=== PATIENT | female | born 1940 | race Caucasian/White ===

== ENCOUNTER 2017-02-09 19:29 | Emergency (ER) | payer OTHER, SELFPAY ==
[~2017-02-09] VITALS: Ht 170.2 cm; Wt 72.6 kg
[~2017-02-09 19:29] MED LIST: ADULT LOW DOSE81 MG PO; ALLERGY RELIEF180 MG PO; AMBIEN 10 MG TA10 MG PO; AMBIEN 5 MG TABL5 M1 PO; ANASPAZ0.125 MG; APAP500 PO; BONIVA; BUDEPRION SR150 MG PO; CALCIUM CITRAT1 EA14 PO; CARAFATE1 GM PO; CEFTRIAXON1 GM/50 ML IV; CEFTRIAXONE2 GM IV; CELEXA 20 MG TA20 MG; CELEXA20 MG PO; CEPHALEXIN 250250 M1 PO; CEPHALEXIN 500500 M3 PO; CIPRO500 MG PO; CLORAZEPATE D3.75 M1; FENOFIBRATE160 MG PO; FERROUS SULFATE PO; FISH OIL 1,4001 EACH PO; FLAGYL500 MG PO; FOLIC ACID0.4 MG; GLUCOSAMINE HC500 MG PO; HUMALOG PE100 UNIT/1; HUMALOG PE100 UNIT/M SUBQ; HYDROCODON-ACE1 EAC6; HYDROCODON-ACE1 EAC7 PO; HYDROCODONE-AP1 EAC6 PO; LANTUSSOLASTAR SUBQ; LASIX 20 MG TAB20 MG PO; LEVAQUIN 500 M500 M2 PO; LEVOTHYROXINE0.05 MG; LEVOTHYROXINE0.2 M1; LEVOXYL175 MCG PO; LINZESS290 MCG PO; LIORESAL 10 MG10 MG PO; LIPITOR 20 MG T20 M1 PO; LISINOPRIL20 MG PO; MAGOX 400400 MG PO; METFORMIN HCL500 MG PO; MULTIVITAMINS PO; NEURONTIN300 MG PO; NITROGLYCERIN0.4 MG SUBLING; NORVASC5 MG PO; OCUVITE EYE +1 EACH PO; OMEPRAZOLE40 MG; ONDANSETRON HCL4 M2 PO; PAXIL10 MG PO; PERCOCET 7.5-31 EACH PO; PLAVIX 75 MG TA75 M1 PO; POTASSIUM20 PO; PREDNISONE 10 M10 M1; PRILOSEC40 MG PO; PRINIVIL20 MG PO; PROBIOTIC1 EAC2 PO; PROTONIX40 M1 PO; RECLAST 55 MG/1002 IV; REGLAN 10 MG TA10 MG PO; TRAZODONE 150150 M1 PO; VITAMIN D2000 UNIT PO; VITAMIN E400 UNI6; XANAX 0.25 MG0.25 MG PO; ZESTORETIC 20-1 EAC3 PO; ZINC CHELATE50 MG PO; ZOFRAN ODT4 MG PO
[2017-02-09 21:17] VITALS: BP 152/76
== END 2017-02-09 21:18 | disposition home or self-care (01) ==
LOC: M.ERS 19:29
DX: S61.411A Laceration without foreign body of right hand, initial encounter (principal); I10 Essential (primary) hypertension; E11.9 Type 2 diabetes mellitus without complications; E03.9 Hypothyroidism, unspecified; F41.9 Anxiety disorder, unspecified; F32.9 Major depressive disorder, single episode, unspecified; M81.0 Age-related osteoporosis without current pathological fracture; Z90.710 Acquired absence of both cervix and uterus; Z98.890 Other specified postprocedural states; W01.0XXA Fall on same level from slipping, tripping and stumbling without subsequent striking against object, initial encounter; Y93.01 Activity, walking, marching and hiking; Y92.89 Other specified places as the place of occurrence of the external cause; Y99.8 Other external cause status

== ENCOUNTER → 2017-07-05 | Outpatient (CLI) | payer OTHER, SELFPAY ==
[~2017-07-05] MED LIST changes: +IPRAT-ALBUT 0.5-3 ML INH; +JARDIANCE10 MG PO; +LEVEMIR SUBQ; +SYNTHROID150 MCG PO; +XANAX1 MG PO
== END ==
LOC: M.CT 08:53
DX: N28.1 Cyst of kidney, acquired (principal); K44.9 Diaphragmatic hernia without obstruction or gangrene; K57.30 Diverticulosis of large intestine without perforation or abscess without bleeding; Z90.49 Acquired absence of other specified parts of digestive tract

== ENCOUNTER 2017-10-22 11:02 | Inpatient (IN) | payer OTHER, SELFPAY ==
[~2017-10-22] VITALS: Ht 170.2 cm; Wt 76.7 kg
[2017-10-22] VITALS (7 sets, daily range): BP systolic 108–155; BP diastolic 42–72
[~2017-10-22 11:02] MED LIST changes: -IPRAT-ALBUT 0.5-3 ML INH; -JARDIANCE10 MG PO; -LEVEMIR SUBQ; -SYNTHROID150 MCG PO; -XANAX1 MG PO
[2017-10-22] MEDS ORDERED: LEVEMIR SUBQ (11:10)
[2017-10-22 11:21] LABS: HEMATOCRIT 35.1 % (37.0-47.0); HEMOGLOBIN 11.7 gm/dL (12.0-15.0); MCH 29.2 pg (26.0-34.0); MCHC 33.3 g/dL (28.0-37.0); MCV 87.8 fL (80.0-100.0); MPV 7.5 fl. (7.2-11.1); NUCLEATED RBCS 0 /100WBC; PLATELET COUNT* 212 thou/uL (150-400); RDW-CV 13.7 % (10.5-14.5)
[2017-10-22 11:33] LABS: ANION GAP 8 mmol/L (7-16); BUN 41 mg/dL (7-18); CALCIUM 8.2 mg/dL (8.5-10.1); CHLORIDE 101 mmol/L (98-107); CO2 26 mmol/L (21-32); CREATININE 1.4 mg/dL (0.6-1.3); GLUCOSE 268 mg/dL (70-99); POTASSIUM 4.4 mmol/L (3.5-5.1); SODIUM 135 mmol/L (136-145)
[2017-10-22 11:37] LABS: APTT 34.2 Seconds (25.0-31.3); INR 0.9; PROTIME 9.7 Seconds (9.20-11.50)
[2017-10-22 11:40] LABS: ALBUMIN 2.9 g/dL (3.4-5.0); ALKALINE PHOSPHATASE 108 U/L (46-116); LIPASE 77 U/L (73-393); SGOT 15 U/L (15-37); SGPT 20 U/L (30-65); TOTAL BILIRUBIN 0.4 mg/dL (<0.1-1.0); TOTAL PROTEIN 7.5 g/dL (6.4-8.2); TROPONIN-I LEVEL <0.06 ng/mL (<0.06)
[2017-10-22 11:49] LABS: ABSOLUTE MONOCYTES 0.5 thou/uL (0.0-1.2); ABSOLUTE NEUTROPHILS 8.5 thou/uL (1.6-8.1)
[2017-10-22 11:50] LABS: PLATELET ESTIMATE ADEQUATE
[2017-10-22 14:07] LABS: URINE BILIRUBIN NEGATIVE (Negative); URINE BLOOD TRACE (Negative); URINE CLARITY CLEAR; URINE COLOR YELLOW; URINE GLUCOSE-RANDOM 3+ (Negative); URINE KETONES NEGATIVE (Negative); URINE LEUKOCYTES-REFLEX NEGATIVE (Negative); URINE NITRITE-REFLEX NEGATIVE (Negative); URINE PROTEIN 1+ (Negative); URINE UROBILINOGEN 0.2 E.U./dl (0.2-1.0)
--- NOTE | 2017-10-22 17:15 | EKG ---
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 10/22/17 1715 1107 1107 Soy Erickson MD, [facility] /EPI
[2017-10-23 04:00] VITALS: BP 116/43; BP 145/79
[2017-10-23 05:03] LABS: HEMATOCRIT 29.2 % (37.0-47.0); HEMOGLOBIN 9.8 gm/dL (12.0-15.0); MCH 29.6 pg (26.0-34.0); MCHC 33.6 g/dL (28.0-37.0); MCV 88.2 fL (80.0-100.0); RBC 3.31 mil/uL (4.20-5.00); RDW-CV 13.9 % (10.5-14.5); WBC 6.5 thou/uL (4.0-11.0)
[2017-10-23 05:55] LABS: ALBUMIN 2.3 g/dL (3.4-5.0); CALCIUM 7.7 mg/dL (8.5-10.1); CREATININE 1.5 mg/dL (0.6-1.3); MAGNESIUM 2.1 mg/dL (1.8-2.4); POTASSIUM 4.1 mmol/L (3.5-5.1); TOTAL BILIRUBIN 0.4 mg/dL (<0.1-1.0); TOTAL PROTEIN 5.5 g/dL (6.4-8.2)
[2017-10-23 08:00] VITALS: BP 94/53
[2017-10-23 11:36] VITALS: BP 136/55
[2017-10-23 15:37] VITALS: BP 148/64
[2017-10-23 19:45] VITALS: BP 128/54
[2017-10-24] VITALS (14 sets, daily range): BP systolic 109–179; BP diastolic 37–72
[2017-10-25] VITALS: BP 104/56
[2017-10-25 04:00] VITALS: BP 132/47
[2017-10-25 08:00] VITALS: BP 114/56
[2017-10-25 08:27] LABS: BE -4.2 mmol/L (-2 to +3); HCO3 19.9 mmol/L (22.0-26.0); PO2 65.1 mmHg (75.0-100.0); pH 7.399 (7.340-7.450)
--- NOTE | 2017-10-25 09:21 | CON ---
[address] [address] CONSULTATION Name: GRAHAM TORO Room: [address] IN .R.#: [id number] Admission: 10/22/17 Attend Phys: Piedad Rod MD Discharge: Date of : 38 Report #: [id number] THIS REPORT FOR: //name// CC: Piedad Rod Quintin Greer DATE OF SERVICE: 10/24/2017 REFERRING PHYSICIAN: Piedad Rod MD CHIEF COMPLAINT: Hypoxemia. HISTORY OF PRESENT ILLNESS: The patient is a 76-year-old female who presented to her primary doctor's office for routine followup. She goes to the doctor for her diabetes. While taking vital signs, the patient's O2 saturation was extremely low. The patient was advised to come to the Emergency Room. According to the patient, she had been short of breath. This has been going on for a couple of months. She had no other symptomatology. She is not aware of ever having problems with her oxygenation in the past. She denies cough, phlegm production, fever or chills. Initially, she did have some chest pain. She did not offer this during the interview. This was brought up on prior records. She is denying hemoptysis, chest pain at this time, cough, phlegm production, fever, chills, nausea or vomiting. PAST MEDICAL HISTORY: Significant for a benign lump lesion on the left side years ago, Benjamin bypass surgery, hypertension, diabetes, depression, hypothyroidism, anxiety, osteoporosis, cervical stenosis. SOCIAL HISTORY: She is . She is a smoker 1 pack per day for 50 years. FAMILY HISTORY: Positive for daughter having breast carcinoma and another relative with colon carcinoma. ALLERGIES: None known. MEDICATIONS: Levothyroxine, insulin, guaifenesin, Levaquin, vitamin D supplement, Lipitor, DuoNeb aerosol treatments. PHYSICAL EXAMINATION: VITAL SIGNS: Blood pressure 112/46, respiratory rate 16, pulse rate 69, temperature 97.7 degrees. Her weight is 178 pounds. GENERAL APPEARANCE: Awake, alert, oriented. HEAD: Atraumatic. EYES: Pupils are round, equal, [place] [address] CONSULTATION Name: GRAHAM TORO Room: [address]#: [id number] Admission: 10/22/17 Attend Phys: Piedad Rod MD Discharge: Date of : 38 Report #: [id number] ORAL CAVITY: She is edentulous. Moist mucous membranes. NECK: No adenopathy. NOSE: Nasal passages are patent. CHEST: Diminished breath sounds. No wheezes, rales or rhonchi. CARDIOVASCULAR: Regular rhythm. No murmurs or rubs. ABDOMEN: Obese, but soft without organomegaly or tenderness. EXTREMITIES: Negative for edema. SKIN: Warm and dry, no rash. NEUROLOGIC: Moves all 4 extremities. Strength equal bilaterally. LYMPHATICS: Negative. Pulses are equal. MEDICAL IMAGING STUDIES: CT of the chest reveals a dense consolidated process involving the left upper lobe which is pleural based, no evidence of adenopathy or effusions. LABORATORY DATA: Sodium 140, potassium 4.1, chloride 106, CO2 of 24, BUN 37, creatinine 1.5, EGFR 34. Hemoglobin and hematocrit of 9.8 and 29, white count 6500. ASSESSMENT: 1. Chronic obstructive airways disease. 2. Lung mass involving the left upper lobe, pleural based. 3. History of diabetes. RECOMMENDATION: An order will be submitted for Interventional Radiology to assess and see if the patient would benefit from undergoing a CT-guided lung biopsy. In the interim, aspiration precautions and aerosol treatments. <ELECTRONICALLY SIGNED> By: Vikram Bragg MD 10/25/17 0921 1113 1407Alsuad Bragg MD /nt
[2017-10-25 12:00] VITALS: BP 109/52
[2017-10-25 15:05] VITALS: BP 158/81
[2017-10-25] MEDS ORDERED: LEVAQUIN 500 M500 M2 PO (16:22)
[2017-10-25] MEDS ORDERED: IPRAT-ALBUT 0.5-3 ML INH (16:32)
[2017-10-25 16:34] VITALS: BP 109/52
--- NOTE | 2017-11-01 16:07 | PATH ---
[address] [address] PATHOLOGY RPT PROCEDURE Name: JACQUELINE BROTHERS Room: [address] IN ..#: [id number] Admission: 10/22/17 Date of : 38 Discharge: 10/25/17 Report #: [id number] Path Case #: [id number] [facility] Accession Number: [id number] . 01 Material submitted: . BIOPSY OF LT UPPER LOBE LUNG MASS . 01 Clinical history: . Lung mass 4.0 x 4.7 cm . 02 Diagnosis: Biopsy of left upper lobe lung mass: - Organizing thrombi in association with reactive fibrosis and acute inflammation, negative for malignancy and granulomas. See comment. (JENNIFER:annalee; 10/28/2017) QMS/10/28/2017 . 02 Comment: Reviewed with Dr. Jessica Mathews, who agrees with the diagnosis. (JENNIFER:annalee; 10/28/2017) . 02 Electronically signed: . Matti Bernard MD, Pathologist NPI- [id number] . 01 Gross description: . The specimen is received in formalin, labeled "Jacqueline Brothers, biopsy of left upper lobe lung mass". Received are five needle cores of friable pale shah soft tissue ranging in length from 0.4 to 0.6 cm, with each measuring 0.1 cm in diameter. The specimen is submitted entirely in cassettes A1 through A3. (CAA; 10/25/2017) QAC/QAC . 02 Pathologist provided ICD-10: J90, J84.10, J18.9 . 02 CPT . 137473 Specimen Comment: A courtesy copy of this report has been sent to Specimen Comment: [phone], , . Specimen Comment: Report sent to ,DR SANDOVAL / DR LOMELI Performed at: [address] [id number] MD Ty Hawkins MD Phone: [phone] Performed at: [address] [place] [address] PATHOLOGY RPT PROCEDURE Name: JACQUELINE BROTHERS Room: [address] IN M.R.#: [id number] Admission: 10/22/17 Date of : 38 Discharge: 10/25/17 Report #: [id number] Path Case #: [id number] [address], [place] [id number] MD Matit Bernard MD Phone: [phone]
[2018-01-06] MEDS ORDERED: XANAX1 MG PO (14:14)
[2018-01-06] MEDS ORDERED: SYNTHROID150 MCG PO (14:15)
[2018-01-06] MEDS ORDERED: JARDIANCE10 MG PO (14:17)
== END 2017-10-25 17:10 | disposition home or self-care (01) | DRG 193 ==
LOC: M.ERS 11:02 → M.2W 12:29 → M.TBA-ER 12:29 → M.2W 13:53
PROVIDERS: Family Medicine; Internal Medicine Pulmonary Disease; ADMIT Internal Medicine
PROC: 0BBG3ZX Excision of Left Upper Lung Lobe, Percutaneous Approach, Diagnostic (ICD-10-PCS; principal; 2017-10-24)
DX: J18.1 Lobar pneumonia, unspecified organism (principal); I26.99 Other pulmonary embolism without acute cor pulmonale; J44.0 Chronic obstructive pulmonary disease with (acute) lower respiratory infection; E44.0 Moderate protein-calorie malnutrition; I12.9 Hypertensive chronic kidney disease with stage 1 through stage 4 chronic kidney disease, or unspecified chronic kidney disease; E11.22 Type 2 diabetes mellitus with diabetic chronic kidney disease; N18.3 Chronic kidney disease, stage 3 (moderate); E03.9 Hypothyroidism, unspecified; H54.40 Blindness, one eye, unspecified eye; F32.9 Major depressive disorder, single episode, unspecified; M81.0 Age-related osteoporosis without current pathological fracture; F41.9 Anxiety disorder, unspecified; M48.02 Spinal stenosis, cervical region; M25.552 Pain in left hip; M25.551 Pain in right hip; Z79.2 Long term (current) use of antibiotics; Z79.82 Long term (current) use of aspirin; Z79.899 Other long term (current) drug therapy; Z79.4 Long term (current) use of insulin; Z98.42 Cataract extraction status, left eye; Z87.891 Personal history of nicotine dependence; Z98.84 Bariatric surgery status; Z98.41 Cataract extraction status, right eye; Z90.49 Acquired absence of other specified parts of digestive tract; Z90.710 Acquired absence of both cervix and uterus; Z87.311 Personal history of (healed) other pathological fracture; Z82.49 Family history of ischemic heart disease and other diseases of the circulatory system; Z80.3 Family history of malignant neoplasm of breast; Z80.0 Family history of malignant neoplasm of digestive organs; Z68.26 Body mass index [BMI] 26.0-26.9, adult

== ENCOUNTER → 2018-06-16 | Outpatient (CLI) | payer OTHER, SELFPAY ==
[~2018-06-16] MED LIST changes: +IPRAT-ALBUT 0.5-3 ML INH; +JARDIANCE10 MG PO; +LEVEMIR SUBQ; +SYNTHROID150 MCG PO; +XANAX1 MG PO
--- NOTE | 2018-06-16 15:25 | 2DMMODE ---
[place] [address] 2 D/M-MODE ECHOCARDIOGRAM Name: MUNAGRAHAM YUMIKO Room: [facility]#: [id number] Admission: 06/16/18 Attend Phys: Elliot Sen Discharge: Date of : 38 Date of Service: 06/16/18 1525 Report #: [id number] THIS REPORT FOR: //name// APPROVED REPORT Study performed: 06/16/2018 14:08:11 EXAM: Comprehensive 2D, Doppler, and color-flow Echocardiogram Patient Location: Out-Patient BSA: 1.98 HR: 82 bpm BP: 142/68 mmHg Other Information Study Quality: Fair Indications Abnormal ECG 2D Dimensions IVSd: 11.72 (7-11mm) LVOT Diam: 19.97 (18-24mm) LVDd: 40.19 mm PWd: 10.24 (7-11mm) Ascending Ao: 29.93 (22-36mm) LVDs: 22.39 (25-40mm) Aortic Root: 29.89 mm Volumes Left Atrial Volume (Systole) LA ESV Index: 19.30 mL/m2 Aortic Valve AoV Peak Jose.: 1.44 m/s AO Peak Gr.: 8.25 mmHg LVOT Max P.17 mmHg AO Mean Gr.: 4.79 mmHg LVOT Mean P.93 mmHg LVOT Max V: 1.24 m/s AO V2 VTI: 26.95 cm LVOT Mean V: 0.78 m/s MUSHTAQ (VTI): 2.65 cm2 LVOT V1 VTI: 22.80 cm Mitral Valve E/A Ratio: 0.56 MV Decel. Time: 408.17 ms MV E Max Jose.: 0.42 m/s MV PHT: 118.37 ms MVA (PHT): 1.86 cm2 [place] [address] 2 D/M-MODE ECHOCARDIOGRAM Name: GRAHAM TORO Room: [facility]#: [id number] Admission: 06/16/18 Attend Phys: Elliot Sen Discharge: Date of : 38 Date of Service: 06/16/18 1525 Report #: [id number] TDI E/Lateral E': 7.00 E/Medial E': 6.00 Medial E' Jose.: 0.07 m/s Lateral E' Jose.: 0.06 m/s Pulmonary Valve PV Peak Jose.: 1.17 m/s PV Peak Gr.: 5.43 mmHg Left Ventricle The left ventricle is normal size. There is normal LV segmental wall motion. There is normal left ventricular wall thickness. Left ventricular systolic function is normal. The left ventricular ejection fraction is within the normal range. LVEF is 60-65%. Grade I - abnormal relaxation pattern. Right Ventricle The right ventricle is normal size. The right ventricular systolic function is normal. Atria The left atrium size is normal. The right atrium size is normal. Aortic Valve The aortic valve is not well visualized. No aortic regurgitation is present. There is no aortic valvular stenosis. Mitral Valve The mitral valve is normal in structure. There is no mitral valve regurgitation noted. No evidence of mitral valve stenosis. Tricuspid Valve The tricuspid valve is normal in structure. There is no tricuspid valve regurgitation noted. Pulmonic Valve Pulmonic valve is not well visualized. There is no pulmonic valvular regurgitation. Great Vessels The aortic root is normal in size. IVC is normal in size and collapses >50% with inspiration. Pericardium There is no pericard[place] [address] 2 D/M-MODE ECHOCARDIOGRAM Name: GRAHAM TORO Room: [facility]#: [id number] Admission: 06/16/18 Attend Phys: Elliot Sen Discharge: Date of : 38 Date of Service: 06/16/18 1525 Report #: [id number] <Conclusion> Left ventricular systolic function is normal. The left ventricular ejection fraction is within the normal range. <ELECTRONICALLY SIGNED> By: Soy Erickson MD, FAC 06/16/18 1525 1525 1525 Soy Erickson MD, [facility] /INF
== END ==
LOC: M.CRD 13:34
DX: R94.31 Abnormal electrocardiogram [ECG] [EKG] (principal); I13.0 Hypertensive heart and chronic kidney disease with heart failure and stage 1 through stage 4 chronic kidney disease, or unspecified chronic kidney disease; E11.22 Type 2 diabetes mellitus with diabetic chronic kidney disease; N18.3 Chronic kidney disease, stage 3 (moderate); I50.9 Heart failure, unspecified

== ENCOUNTER → 2018-06-17 | Outpatient (CLI) | payer OTHER, SELFPAY | LOC: M.RAD 14:53 → M.NUC 16:00 | DX: J98.4 Other disorders of lung (principal); R79.1 Abnormal coagulation profile; R06.00 Dyspnea, unspecified ==

== ENCOUNTER 2018-07-20 12:52 | Inpatient (IN) | payer OTHER, SELFPAY ==
[~2018-07-20] VITALS: Ht 170.2 cm; Wt 88.9 kg
--- NOTE | ~2018-07-20 | PROC ---
[address] [address] PROCEDURE REPORT Name: GRAHAM TORO Room: [address] IN ..#: [id number] Admission: 07/20/18 Attend Phys: Nancy Zhou Discharge: 07/23/18 Date of : 38 Report #: [id number] THIS REPORT FOR: //name// For GI report, please see the Provation report in Perceptive 7 content. By: 0708Medical Records Staff LAMAR /ANDRIY
--- NOTE | ~2018-07-20 | CON ---
[address] [address] CONSULTATION Name: GRAHAM TORO Room: [address] IN .R.#: [id number] Admission: 07/20/18 Attend Phys: Nancy Zhou Discharge: Date of : 38 Report #: [id number] THIS REPORT FOR: //name// CC: Quintin West HISTORY OF PRESENT ILLNESS: A 77-year-old female known to our service from her previous hospitalizations, who is presenting for evaluation of nausea and vomiting. The patient has a prior history of type 2 diabetes, gastroparesis, Baptiste's esophagus and recurrent episodes of nausea and vomiting. The patient himself presents with one such episode of nausea, vomiting. Reports throwing up 4-5 times. The emesis contained mostly food. Denies any blood or coffee-ground material. She denies any hematemesis, hematochezia or melena. The patient reports burning sensation in the back of her chest on a daily basis. Denies any difficulty swallowing. The patient was previously diagnosed with gastroparesis, placed on Reglan, but she failed to follow up in the GI clinic and fail to take her medication as directed. PAST MEDICAL HISTORY: Type 2 diabetes, hypertension, hypothyroidism, depression, anxiety, osteoporosis, gastroparesis, and Baptiste's esophagus. PAST SURGICAL HISTORY: The patient had a Billroth II 25 years back, hernia repair, cataract surgery, cholecystectomy, left hip fracture, hysterectomy, fractured left wrist and carpal tunnel surgery. FAMILY HISTORY: No family history of colorectal cancer or quiñonez related neoplasia. SOCIAL HISTORY: The patient denies smoking, alcohol or recreational drug use. REVIEW OF SYSTEMS: A comprehensive 10-point review of systems is negative except for what was mentioned in the HPI. PHYSICAL EXAMINATION: VITAL SIGNS: Temperature 36.7, pulse rate 84, respirations 16, blood pressure 139/64. GENERAL: The patient is alert, awake, oriented x 3. HEENT: Pupils are equal, round, reactive to light and accommodation. Mucous membranes are moist. There is no congestion. LUNGS: Clear to auscultation bilaterally. CARDIOVASCULAR: Rate and rhythm regular, S1, S2 present. ABDOMEN: Soft, mild tenderness to palpation in the epigastric right upper quadrant and left upper quadrant region. No guarding or rigidity. EXTREMITIES: [place] [address] CONSULTATION Name: GRAHAM TORO Room: [address]#: [id number] Admission: 07/20/18 Attend Phys: Nancy Zhou Discharge: Date of : 38 Report #: [id number] LABORATORY DATA: Hemoglobin 9.3, hematocrit 29.1, platelet count 150, WBC count 5.3. Sodium 143, potassium 3.6, chloride 111, bicarbonate 23, BUN 29, creatinine 1.3, total bilirubin 0.7, AST 13, ALT 17, alkaline phosphatase 61. ASSESSMENT AND PLAN: Pleasant 77-year-old female with history as outlined above including diabetes and gastroparesis, presenting with nausea, vomiting. We will proceed with the endoscopic evaluation to rule out any peptic ulcer disease. The patient does have a known history of Baptiste's esophagus. She will need to be on Reglan as an outpatient on a daily basis and the patient also needs to be on a PPI on a regular basis. Further recommendations will be made after the results of the EGD. Thank you for this consultation. By: [id number] Flower MD /suyapa
[2018-07-20 13:08] VITALS: BP 123/69
[2018-07-20 13:51] LABS: ABSOLUTE EOSINOPHILS 0.1 thou/uL (0.0-0.7); ABSOLUTE LYMPHOCYTES 1.2 thou/uL (0.8-5.3); ABSOLUTE MONOCYTES 0.6 thou/uL (0.0-1.2); BASOPHILS 0.3 %; EOSINOPHILS 0.8 %; HEMATOCRIT 34.5 % (37.0-47.0); HEMOGLOBIN 11.1 gm/dL (12.0-15.0); LYMPHOCYTES 12.3 %; MCH 24.8 pg (26.0-34.0); MCHC 32.1 g/dL (28.0-37.0); MCV 77.4 fL (80.0-100.0); MONOCYTES 5.6 %; MPV 7.6 fl. (7.2-11.1); NUCLEATED RBCS 0 /100WBC; PLATELET COUNT* 167 thou/uL (150-400); RBC 4.46 mil/uL (4.20-5.00); RDW-CV 17.2 % (10.5-14.5); WBC 9.9 thou/uL (4.0-11.0)
[2018-07-20 14:00] LABS: ANION GAP 9 mmol/L (7-16); BUN 30 mg/dL (7-18); CALCIUM 8.8 mg/dL (8.5-10.1); CHLORIDE 103 mmol/L (98-107); CO2 25 mmol/L (21-32); CREATININE 1.6 mg/dL (0.6-1.3); GLUCOSE 261 mg/dL (70-99); POTASSIUM 4.6 mmol/L (3.5-5.1); SODIUM 137 mmol/L (136-145)
[2018-07-20 14:09] LABS: ALKALINE PHOSPHATASE 61 U/L (46-116); LIPASE 31 U/L (73-393); SGOT 13 U/L (15-37); SGPT 17 U/L (30-65); TOTAL BILIRUBIN 0.7 mg/dL (<0.1-1.0); TOTAL PROTEIN 6.9 g/dL (6.4-8.2); TROPONIN-I LEVEL <0.06 ng/mL (<0.06)
[2018-07-20 16:40] VITALS: BP 150/55
[2018-07-20 17:21] VITALS: BP 112/67
[2018-07-20] MEDS ORDERED: METFORMIN HCL500 MG PO (17:43)
--- NOTE | 2018-07-20 17:52 | NUR ---
ASSESSMENT COMPLETE. PT ALERT AND ORIENTED X4. PT FROM HOME WITH SPOUSE. PT DENIES PAIN AND N/V AT THIS TIME. PT IS ACCUCHECK. NSR ON TELE MONITOR. VSS. PT IS FALL RISK, BED ALARM ON. PT UP WITH ONE ASSIST. PT HAS IV FLUIDS INFUSING. SEE ASSESSMENT AND VITALS FOR OTHER DETAILS. CALL LIGHT WITHIN REACH, WILL CONTINUE PLAN OF CARE
[2018-07-20 19:57] LABS: CALCIUM 7.7 mg/dL (8.5-10.1); CREATININE 1.3 mg/dL (0.6-1.3); MAGNESIUM 1.7 mg/dL (1.8-2.4)
[2018-07-20 19:59] LABS: POTASSIUM 3.6 mmol/L (3.5-5.1)
[2018-07-20 20:00] VITALS: BP 146/60
[2018-07-21] VITALS: BP 162/73
[2018-07-21 04:00] VITALS: BP 158/76
--- NOTE | 2018-07-21 05:42 | NUR ---
PATIENT PROGRESSING TOWARDS GOALS: PATIENT ABLE TO TOLERATE CHICKEN BROTH AND SALTINE CRACKERS WITH NO NAUSEA/VOMITING. PATIENT DENIES PAIN AND DISCOMFORT. VSS ON 3L O2 NC. O2 SATURATION MAINTAINED >92%. CALL LIGHT WITHIN REACH
[2018-07-21 07:48] VITALS: BP 144/73
[2018-07-21 11:39] VITALS: BP 139/64
--- NOTE | 2018-07-21 11:58 | NUR ---
Pt is A&O. Resides at home with her . Independent. No DME. Hx of [facility]. Pt states that she has been to a skilled facility, but does not remember which one. Goal is home at nd, no needs anticipated.
[2018-07-21 15:33] VITALS: BP 143/57
--- NOTE | 2018-07-21 15:36 | EKG ---
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: [place] : 1940 Requested By: Jacobo Saenz Order Number: [id number] MD: Percy Hood Measurements Intervals [place] Rate: 97 P: 46 [place]: 169 QRS: -28 QRSD: 83 T: 54 QT: 352 QTc: 447 Interpretive Statements Sinus rhythm Probable left atrial enlargement Borderline left axis deviation Abnormal R-wave progression Compared to ECG 10/22/2017 11:07:01 Sinus arrhythmia no longer present Electronically Signed On 07-21-2018 15:36:11 CDT by Percy Hood [email or web address] <ELECTRONICALLY SIGNED> By: Percy Hood MD, FACC 07/21/18 1536 1310 1310 Percy Hood MD, [facility] /EPI
--- NOTE | 2018-07-21 16:40 | NUR ---
ASSESSMENT COMPLETE. PT ALERT AND ORIENTED X4, HARD OF HEARING. PT DENIES PAIN. PT IS SOA WITH MIN EXERTION. UP WITH STANDBY ASSIST. PT HAS IV FLUIDS INFUSING. ACCUCHECK ACHS, METFORMIN STARTED AT 1700. PT TAKES MEDICATIONS WITHOUT COMPLICATIONS. NSR ON TELE MONITOR, VSS. PT TOLERATING MEALS AND DENIES N/V. SEE ASSESSMENT AND VITALS FOR OTHER DETAILS. CALL LIGHT WITHIN REACH, WILL CONTINUE PLAN OF CARE
[2018-07-21 20:00] VITALS: BP 160/53
[2018-07-21 20:48] LABS: HEMATOCRIT 29.1 % (37.0-47.0); HEMOGLOBIN 9.3 gm/dL (12.0-15.0); MCH 24.8 pg (26.0-34.0); MCHC 31.9 g/dL (28.0-37.0); MCV 77.8 fL (80.0-100.0); MPV 7.2 fl. (7.2-11.1); RBC 3.73 mil/uL (4.20-5.00); RDW-CV 17.5 % (10.5-14.5); WBC 5.3 thou/uL (4.0-11.0)
[2018-07-22] VITALS (7 sets, daily range): BP systolic 127–165; BP diastolic 48–68
--- NOTE | 2018-07-22 05:35 | NUR ---
PATIENT PARTIALLY PROGRESSING TOWARDS GOALS: PATIENT CONTINUES TO GET SOA WITH MINIMAL EXERTION. INCREASED WHEEZES TO LUNG VILLEGAS NOTED. ORDERS RECEIVED FOR PRN BREATHING TX. ADMINISTERED BY RESPIRATORY THERAPY WITH IMPROVEMENT AND RELIEF OF SHORTNESS OF AIR. PATIENT NPO FOR EGD TODAY. PATIENT AWARE AND VERBALIZES UNDERSTANDING, ALTHOUGH OCCASIONALLY FORGETS AND ASKING FOR WATER. CALL LIGHT WITHIN REACH
--- NOTE | 2018-07-22 07:05 | NUR ---
CHANGE OF SHIFT BEDSIDE REPORT GIVEN PATIENT SEEN AT BEDSIDE, IN BED ASLEEP ASSUMED PATIENT CARE
[2018-07-23 05:17] VITALS: BP 151/62
--- NOTE | 2018-07-23 05:25 | NUR ---
PATIENT PROGRESSING TOWARDS GOALS: PATIENT DENIES PAIN, DISCOMFORT, AND NAUSEA THIS SHIFT. TOLERATING REGULAR DIET POST EGD. PATIENT REMAINS ON 2L O2 NC WITH SATURATION >92%. PATIENT EAGER TO BE DISCHARGED HOME TODAY. CALL LIGHT WITHIN REACH
[2018-07-23 06:23] VITALS: BP 151/62
--- NOTE | 2018-07-23 07:25 | NUR ---
CHANGE OF SHIFT, BEDSIDE REPORT GIVEN PATIENT SEEN AT BEDSIDE, IN BED ASLEEP ASSUMED PATIENT CARE
[2018-07-23 08:00] VITALS: BP 132/54
[2018-07-23 12:00] VITALS: BP 137/56
--- NOTE | 2018-07-23 15:04 | NUR ---
Pt discharging to home today, no home o2 needed.
[2018-07-23 15:11] VITALS: BP 137/56
[2018-07-23] MEDS ORDERED: REGLAN 10 MG TA10 MG PO (15:29)
[2018-07-23] MEDS ORDERED: CEFDINIR300 MG PO (15:30)
--- NOTE | 2018-07-23 15:57 | NUR ---
PATIENT DISCHARGED TO HOME IV AND HEART MONITOR REMOVED PERSONAL BELONGINGS RETURNED DISCHARGE INSTRUCTIONS GIVEN, ACKNOWLEDGED, SIGNED COPIES GIVEN ASSISTED OUT VIA WC GOOD CONDITION TO WAITING CAR
== END 2018-07-23 16:00 | disposition home or self-care (01) | DRG 380 ==
LOC: M.ERS 12:52 → M.TBA-ER 14:39 → M.2W 14:39
PROVIDERS: Emergency Medicine Emergency Medical Services; Internal Medicine Gastroenterology; ADMIT Internal Medicine
PROC: 0D758ZZ Dilation of Esophagus, Via Natural or Artificial Opening Endoscopic (ICD-10-PCS; principal; 2018-07-22)
DX: K22.70 Barrett's esophagus without dysplasia (principal); J15.6 Pneumonia due to other Gram-negative bacteria; J96.91 Respiratory failure, unspecified with hypoxia; J44.1 Chronic obstructive pulmonary disease with (acute) exacerbation; J44.0 Chronic obstructive pulmonary disease with (acute) lower respiratory infection; K21.9 Gastro-esophageal reflux disease without esophagitis; E11.9 Type 2 diabetes mellitus without complications; I10 Essential (primary) hypertension; E03.9 Hypothyroidism, unspecified; F32.9 Major depressive disorder, single episode, unspecified; M81.0 Age-related osteoporosis without current pathological fracture; H54.62 Unqualified visual loss, left eye, normal vision right eye; F41.9 Anxiety disorder, unspecified; K20.9 Esophagitis, unspecified; Z79.899 Other long term (current) drug therapy; Z98.42 Cataract extraction status, left eye; Z90.49 Acquired absence of other specified parts of digestive tract; Z87.81 Personal history of (healed) traumatic fracture; Z90.710 Acquired absence of both cervix and uterus; Z82.49 Family history of ischemic heart disease and other diseases of the circulatory system; Z87.891 Personal history of nicotine dependence; Z98.0 Intestinal bypass and anastomosis status; Z79.82 Long term (current) use of aspirin

== ENCOUNTER 2019-01-27 12:07 | Emergency (ER) | payer OTHER ==
[~2019-01-27] VITALS: Ht 170.2 cm; Wt 86.2 kg
[~2019-01-27 12:07] MED LIST changes: +CEFDINIR300 MG PO
[2019-01-27 12:08] VITALS: BP 161/56
[2019-01-27 12:38] LABS: ABSOLUTE BASOPHILS 0.1 thou/uL (0.0-0.2); ABSOLUTE EOSINOPHILS 0.2 thou/uL (0.0-0.7); ABSOLUTE LYMPHOCYTES 1.2 thou/uL (0.8-5.3); ABSOLUTE MONOCYTES 0.3 thou/uL (0.0-1.2); ABSOLUTE NEUTROPHILS 2.9 thou/uL (1.6-8.1); BASOPHILS 1.1 %; EOSINOPHILS 4.7 %; HEMATOCRIT 30.9 % (37.0-47.0); LYMPHOCYTES 26.5 %; MCH 26.2 pg (26.0-34.0); MCHC 32.5 g/dL (28.0-37.0); MCV 80.6 fL (80.0-100.0); MONOCYTES 6.2 %; MPV 7.9 fl. (7.2-11.1); NUCLEATED RBCS 0 /100WBC; PLATELET COUNT* 197 thou/uL (150-400); POLYS 61.5 %; RBC 3.83 mil/uL (4.20-5.00); RDW-CV 16.1 % (10.5-14.5); WBC 4.7 thou/uL (4.0-11.0)
[2019-01-27 12:49] LABS: APTT 25.5 Seconds (25.0-31.3); INR 0.9; PROTIME 9.7 Seconds (9.20-11.50)
[2019-01-27 13:22] LABS: CALCIUM 9.1 mg/dL (8.5-10.1); CREATININE 1.6 mg/dL (0.6-1.3); POTASSIUM 3.9 mmol/L (3.5-5.1)
[2019-01-27 13:36] LABS: ALBUMIN 2.9 g/dL (3.4-5.0); TOTAL BILIRUBIN 0.3 mg/dL (<0.1-1.0); TOTAL PROTEIN 6.5 g/dL (6.4-8.2)
[2019-01-27] MEDS ORDERED: NORCO 5-325 TA1 EAC1 PO ×3 (15:23→17:21)
--- NOTE | 2019-01-27 16:45 | EKG ---
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: JAMES : 1940 Requested By: Peter Smalls Order Number: [id number] MD: Percy Hood Measurements Intervals [place] Rate: 59 P: 48 MO: 192 QRS: 3 QRSD: 94 T: 44 QT: 464 QTc: 460 Interpretive Statements Sinus rhythm Minimal nonspecific ST elevation, anterior leads Compared to ECG 07/20/2018 13:10:42 ST (T wave) deviation now present Heart rate has increased Electronically Signed On 01-27-2019 16:45:27 OVERLOCKER by Percy Hood [email or web address] <ELECTRONICALLY SIGNED> By: Percy Hood MD, FAC 01/27/19 1645 1248 1248 Percy Hood MD, [facility] /EPI
[2019-01-27 17:49] VITALS: BP 138/68
== END 2019-01-27 18:00 | disposition home or self-care (01) ==
LOC: M.ERS 12:07 → M.TBA-ER 14:48 → M.ERS 14:48 → M.TBA-ER 01-28 07:23
PROVIDERS: Family Medicine
DX: S42.411A Displaced simple supracondylar fracture without intercondylar fracture of right humerus, initial encounter for closed fracture (principal); S70.01XA Contusion of right hip, initial encounter; I11.0 Hypertensive heart disease with heart failure; I50.9 Heart failure, unspecified; E11.9 Type 2 diabetes mellitus without complications; E03.9 Hypothyroidism, unspecified; M81.0 Age-related osteoporosis without current pathological fracture; F32.9 Major depressive disorder, single episode, unspecified; F41.9 Anxiety disorder, unspecified; Z90.12 Acquired absence of left breast and nipple; Z90.49 Acquired absence of other specified parts of digestive tract; Z90.710 Acquired absence of both cervix and uterus; W18.39XA Other fall on same level, initial encounter; Y93.89 Activity, other specified; Y92.89 Other specified places as the place of occurrence of the external cause; Y99.8 Other external cause status

== ENCOUNTER 2019-02-02 10:38 | Inpatient (IN) | payer OTHER ==
[~2019-02-02] VITALS: Ht 170.2 cm; Wt 98.7 kg
--- NOTE | ~2019-02-02 | OP ---
[facility] [place] [address] OPERATIVE REPORT Name: MUNAGRAHAM Afshin Room: [address] M.R.#: [id number] Admission: 02/02/19 Attend Phys: Nancy Zhou Discharge: Date of : 38 Report #: [id number] THIS REPORT FOR: //name// CC: Quintin West DATE OF SERVICE: 02/02/2019 PREOPERATIVE DIAGNOSIS: Right comminuted intraarticular distal humerus fracture. POSTOPERATIVE DIAGNOSIS: Right comminuted intraarticular distal humerus fracture. PROCEDURE: Open reduction and internal fixation of right comminuted intraarticular distal humerus fracture. SURGEON: Basil Jasso DO TEST BORER: 1. Pepe Pang DO 2. Pepe Capps DO ANESTHESIA: General. ANTIBIOTICS: Ancef IV. FLUIDS: 600 mL LR COMPLICATIONS: None. SPECIMENS: None. DRAINS: None. CONDITION OF PATIENT: Stable to PACU. IMPLANTS: Synthes parallel plating distal humerus plates with cortical screws proximally for the medial plate, one cortical screw proximally on the lateral plate with the most proximal screw being a unicortical locking screw, distally all screws were locking. INDICATIONS FOR PROCEDURE: Patient presented to [facility] for operative treatment of her distal humerus fracture. I have seen her, not only in consultation from the ER, but also contacted on the phone and then today as well. We talked about her diagnosis, imaging findings, treatment options [facility] [place] [address] OPERATIVE REPORT Name: GRAHAM TORO Room: [address] M.R.#: [id number] Admission: 02/02/19 Attend Phys: Nancy Zhou Discharge: Date of : 38 Report #: [id number] including nonoperative management, plan of surgery and risks and complications. I also spoke with her son on the phone. Ultimately, they wished to have operative fixation as they did not like the idea of nonoperative management or total elbow arthroplasty. I went over them in detail the risks and complications. Please see previous notes for full details of discussions had. They wished to proceed as planned and gave consent. DESCRIPTION OF PROCEDURE: I marked the right upper extremity in the presence of the operative team members. Everyone agreed this was correct. She was taken back to the operative suite where a briefing was performed indicating correct patient, procedure, site, antibiotics and that implants were present and sterile. All team members agreed. General anesthetic was administered. She was then transferred over to the operative table and placed into the left lateral decubitus position. All extremities were bolstered appropriately. We brought in C-arm and confirmed that we were able to obtain our images without incident. Once we confirmed that she was appropriately positioned and secured and padded appropriately, the right upper extremity was sterilely prepped and draped in standard fashion. Timeout was performed indicating correct patient, procedure, site, antibiotics and that implants were present and sterile. All team members agreed. We placed a well-padded sterile tourniquet proximally. Esmarched the extremity and insufflated the tourniquet at 250 mmHg. Standard incision posteriorly midline was made curving off of the olecranon, so was not be prominent. Full thickness flaps developed. We then incised secondarily the fascia. We began medially, identified the ulnar nerve in its entirety and protected this throughout the entirety of the case and released it appropriately with a vessel loop, helping to protect and no undue tension placed. We then performed our ulnar aspect of the paratricipital approach and isolated that fracture fragments. Significant comminution and bone loss, especially within the olecranon fossa was identified as well as significant comminution of the articular segment with significant tiny pieces of articular surface that had to be discarded as there would be no way to actually stabilize them. We then performed the paratricipital approach on the lateral aspect. We identified the posterior brachial cutaneous nerve and followed this up and make sure that this was protected up to the radial neurovascular structure and this was not disrupted and protected throughout the entirety of the case. We were able to overall obtain a reduction as best as possible with her bone loss to overall have a stable elbow that allowed for concentric pronation, supination, flexion and extension. We pinned this into position confirmed on multiplanar C-arm imaging that was overall appropriate. We restored elbow congruity and articular congruity. At that point in time, we then fashioned the plate, confirmed on multiplanar C-arm imaging that they were appropriate. We began by placing cortical screws proximally first and then drilled and placed locking screws by direct visualization. Any screws that were deemed to be too prominent or intra-articular, we removed and shortened them up. Once we had all screws in place, we then drilled the remaining cortical screw proximally for the ulnar sided aspect of the plate. We placed this in a slightly angled position, so [address] [address] OPERATIVE REPORT Name: GRAHAM TORO [address]: [address] Juan#: [id number] Admission: 02/02/19 Attend Phys: Nancy Zhou Discharge: Date of : 38 Report #: [id number] there would not be a stress riser. The most proximal screw for the lateral side was placed a unicortical locking screw. We had all provisional fixation removed. The elbow was going into full flexion and full extension, concentric motion with stability in all planes and full pronation, supination. No evidence of any intra-articular penetration of screws. Multiplanar C-arm imaging showed overall acceptable fracture reduction and placement of all hardware with no obvious intraarticular protruding penetration of screws. We dismissed C-arm after saving the images, let down tourniquet, total time was 101 minutes. Maintained hemostasis, thoroughly irrigated with normal saline. The ulnar nerve was transposed in the sense that we reapproximated the tissue over the edge of the epicondyle so there would not be hardware prominence along the nerve. The nerve would sit in a more subcutaneous position than where it was normally found. We reapproximated the lateral aspect as appropriate with 0 Vicryl [id number] interrupted and then we reapproximated our overall fascia with 0 Vicryl in a running form. Subcutaneous and skin were closed with 2-0 Monocryl buried deep and a running 3-0 nylon suture. Debriefing was performed where we confirmed procedure, blood loss and that all counts were correct and final. All team members agreed. She was placed into a very well-padded sterile splint consisting of Xeroform gauze, 4 x 4s, soft roll and a posterior UCL with her hand left out. She was extubated successfully and transferred off the operating table, taken to PACU stable. POSTOPERATIVE COURSE AND EVALUATION: I spoke with her and her son addressing questions that they had to their stated satisfaction. They were thankful for my time and efforts. She was resting in PACU with stable vital signs. Neurovascularly, she was intact distally in that extremity with the tendons functioning appropriately distally. Compartments are soft and compressible. No pain with passive stretch. PACU films were not obtained due to the splint being placed and unable to perform adequate images that would most likely lead to confusion. We were able to obtain true AP and lateral images intraoperatively. We will obtain postoperative images of the first postoperative visit once the splint is off and we can obtain better positioning of the extremity. She will be nonweightbearing. Range of motion about the joints will be discussed for what is allowed. PT, OT. We will likely see the patient prior to discharge. She is admitted to the medical service and we contacted them directly to make sure that they were aware of the patient's care and they will be seeing. DVT prophylaxis will be both pharmacological and mechanical. Encouraged nursing medical staff. The patient and her family to call anytime with questions or concerns. By: 13 220Basil Jasso DO /suyapa
[~2019-02-02 10:38] MED LIST changes: -LEVEMIR SUBQ; +Levemir SUBQ; +NORCO 5-325 TA1 EAC1 PO
[2019-02-02 20:40] VITALS: BP 181/60
[2019-02-03 00:30] VITALS: BP 185/66
[2019-02-03 04:00] VITALS: BP 166/64
[2019-02-03 08:00] VITALS: BP 143/57
[2019-02-03 09:46] LABS: HEMATOCRIT 25.6 % (37.0-47.0); HEMOGLOBIN 8.3 gm/dL (12.0-15.0); MCH 26.2 pg (26.0-34.0); MCHC 32.6 g/dL (28.0-37.0); MCV 80.4 fL (80.0-100.0); MPV 7.5 fl. (7.2-11.1); RBC 3.18 mil/uL (4.20-5.00); RDW-CV 16.3 % (10.5-14.5); WBC 7.6 thou/uL (4.0-11.0)
[2019-02-03 09:52] LABS: CALCIUM 8.1 mg/dL (8.5-10.1); CREATININE 1.7 mg/dL (0.6-1.3); MAGNESIUM 1.6 mg/dL (1.8-2.4); POTASSIUM 3.8 mmol/L (3.5-5.1)
[2019-02-03 19:36] VITALS: BP 114/41
[2019-02-03 20:00] VITALS: BP 120/45
[2019-02-04] VITALS: BP 119/44
[2019-02-04 04:00] VITALS: BP 114/45
[2019-02-04 05:09] LABS: HEMATOCRIT 21.4 % (37.0-47.0); HEMOGLOBIN 7.2 gm/dL (12.0-15.0)
[2019-02-04 08:15] VITALS: BP 114/45
[2019-02-04 11:30] VITALS: BP 106/36
[2019-02-04 16:00] VITALS: BP 138/44
[2019-02-04 20:00] VITALS: BP 133/49
[2019-02-05] VITALS: BP 121/44
[2019-02-05 04:00] VITALS: BP 108/41
[2019-02-05 05:02] LABS: HEMATOCRIT 22.2 % (37.0-47.0); HEMOGLOBIN 7.4 gm/dL (12.0-15.0); MCH 26.7 pg (26.0-34.0); MCHC 33.4 g/dL (28.0-37.0); MPV 7.6 fl. (7.2-11.1); RBC 2.78 mil/uL (4.20-5.00); RDW-CV 16.4 % (10.5-14.5); WBC 7.3 thou/uL (4.0-11.0)
[2019-02-05 05:16] LABS: CALCIUM 8.1 mg/dL (8.5-10.1); CREATININE 2.3 mg/dL (0.6-1.3); MAGNESIUM 1.8 mg/dL (1.8-2.4); POTASSIUM 4.6 mmol/L (3.5-5.1); TOTAL BILIRUBIN 0.4 mg/dL (<0.1-1.0); TOTAL PROTEIN 5.7 g/dL (6.4-8.2)
[2019-02-05 08:20] VITALS: BP 118/45
[2019-02-05 09:57] LABS: URINE BILIRUBIN NEGATIVE (Negative); URINE BLOOD NEGATIVE (Negative); URINE CLARITY CLEAR; URINE COLOR YELLOW; URINE GLUCOSE-RANDOM NEGATIVE (Negative); URINE KETONES NEGATIVE (Negative); URINE LEUKOCYTES-REFLEX 1+ (Negative); URINE NITRITE-REFLEX NEGATIVE (Negative); URINE PROTEIN 1+ (Negative); URINE SPECIFIC GRAVITY >= 1.030 (1.005-1.030); URINE UROBILINOGEN 0.2 E.U./dl (0.2-1.0)
[2019-02-05 10:04] LABS: CASTS None Seen /LPF (None Seen); CRYSTALS None Seen /LPF (None Seen); SQUAMOUS 0-3 Few /LPF (0-3); URINE RBC 0-2 Rare /HPF (0-2); URINE WBC-REFLEX 6-15 Few /HPF (0-5)
[2019-02-05 11:29] VITALS: BP 129/46
[2019-02-05 16:16] VITALS: BP 120/37
[2019-02-05 20:00] VITALS: BP 128/39
[2019-02-06] VITALS: BP 141/53
[2019-02-06 03:59] LABS: MCH 26.9 pg (26.0-34.0); MCHC 33.4 g/dL (28.0-37.0); MCV 80.5 fL (80.0-100.0); MPV 8.4 fl. (7.2-11.1); RBC 2.28 mil/uL (4.20-5.00); RDW-CV 16.3 % (10.5-14.5); WBC 4.5 thou/uL (4.0-11.0)
[2019-02-06 04:00] VITALS: BP 128/48
[2019-02-06 04:27] LABS: CALCIUM 7.4 mg/dL (8.5-10.1); CREATININE 1.9 mg/dL (0.6-1.3); MAGNESIUM 1.9 mg/dL (1.8-2.4); POTASSIUM 4.8 mmol/L (3.5-5.1)
[2019-02-06 05:09] LABS: HEMATOCRIT 18.4 % (37.0-47.0); HEMOGLOBIN 6.1 gm/dL (12.0-15.0)
[2019-02-06 07:45] VITALS: BP 136/50
[2019-02-06 09:36] VITALS: BP 137/52; BP 138/45; BP 155/59; BP 159/53; BP 164/58
[2019-02-06 15:46] LABS: ABSOLUTE EOSINOPHILS 0.2 thou/uL (0.0-0.7); ABSOLUTE LYMPHOCYTES 0.8 thou/uL (0.8-5.3); ABSOLUTE MONOCYTES 0.3 thou/uL (0.0-1.2); ABSOLUTE NEUTROPHILS 3.2 thou/uL (1.6-8.1); BASOPHILS 0.8 %; EOSINOPHILS 4.3 %; HEMATOCRIT 22.4 % (37.0-47.0); HEMOGLOBIN 7.5 gm/dL (12.0-15.0); LYMPHOCYTES 17.3 %; MCH 26.7 pg (26.0-34.0); MCHC 33.3 g/dL (28.0-37.0); MCV 80.1 fL (80.0-100.0); MONOCYTES 7.1 %; MPV 7.6 fl. (7.2-11.1); NUCLEATED RBCS 0 /100WBC; PLATELET COUNT* 211 thou/uL (150-400); POLYS 70.5 %; RDW-CV 16.7 % (10.5-14.5); WBC 4.5 thou/uL (4.0-11.0)
[2019-02-06 16:22] VITALS: BP 127/44
[2019-02-06 20:00] VITALS: BP 145/56
[2019-02-07] VITALS: BP 150/45
[2019-02-07 04:00] VITALS: BP 148/52
[2019-02-07 05:13] LABS: HEMATOCRIT 21.3 % (37.0-47.0); MCH 26.5 pg (26.0-34.0); MCHC 33.1 g/dL (28.0-37.0); MCV 80.1 fL (80.0-100.0); MPV 7.8 fl. (7.2-11.1); RBC 2.66 mil/uL (4.20-5.00); RDW-CV 16.3 % (10.5-14.5); WBC 3.4 thou/uL (4.0-11.0)
[2019-02-07 05:32] LABS: CALCIUM 8.2 mg/dL (8.5-10.1); CREATININE 1.5 mg/dL (0.6-1.3); MAGNESIUM 1.9 mg/dL (1.8-2.4); POTASSIUM 4.7 mmol/L (3.5-5.1)
[2019-02-07 12:02] VITALS: BP 151/68
[2019-02-07 16:35] VITALS: BP 145/66
[2019-02-07 20:00] VITALS: BP 121/49
[2019-02-08] VITALS: BP 141/61; BP 163/64
[2019-02-08 04:53] LABS: ABSOLUTE EOSINOPHILS 0.2 thou/uL (0.0-0.7); ABSOLUTE LYMPHOCYTES 0.7 thou/uL (0.8-5.3); ABSOLUTE MONOCYTES 0.2 thou/uL (0.0-1.2); ABSOLUTE NEUTROPHILS 1.8 thou/uL (1.6-8.1); BASOPHILS 1.3 %; EOSINOPHILS 5.9 %; HEMATOCRIT 21.6 % (37.0-47.0); HEMOGLOBIN 7.2 gm/dL (12.0-15.0); LYMPHOCYTES 24.5 %; MCH 26.6 pg (26.0-34.0); MCHC 33.2 g/dL (28.0-37.0); MCV 80.1 fL (80.0-100.0); MONOCYTES 7.5 %; MPV 7.8 fl. (7.2-11.1); NUCLEATED RBCS 0 /100WBC; PLATELET COUNT* 203 thou/uL (150-400); POLYS 60.8 %; RDW-CV 16.5 % (10.5-14.5); WBC 2.9 thou/uL (4.0-11.0)
[2019-02-08 05:18] LABS: CALCIUM 8.1 mg/dL (8.5-10.1); CREATININE 1.3 mg/dL (0.6-1.3); POTASSIUM 4.4 mmol/L (3.5-5.1); TOTAL BILIRUBIN 0.3 mg/dL (<0.1-1.0); TOTAL PROTEIN 5.5 g/dL (6.4-8.2)
[2019-02-08 08:00] VITALS: BP 135/49
[2019-02-08 19:44] VITALS: BP 163/71
[2019-02-09 04:42] LABS: ABSOLUTE BASOPHILS 0.1 thou/uL (0.0-0.2); ABSOLUTE EOSINOPHILS 0.2 thou/uL (0.0-0.7); ABSOLUTE LYMPHOCYTES 0.8 thou/uL (0.8-5.3); ABSOLUTE MONOCYTES 0.3 thou/uL (0.0-1.2); ABSOLUTE NEUTROPHILS 1.7 thou/uL (1.6-8.1); BASOPHILS 1.7 %; EOSINOPHILS 5.9 %; HEMOGLOBIN 7.2 gm/dL (12.0-15.0); LYMPHOCYTES 26.8 %; MCH 26.5 pg (26.0-34.0); MCV 80.5 fL (80.0-100.0); MONOCYTES 8.9 %; NUCLEATED RBCS 0 /100WBC; PLATELET COUNT* 205 thou/uL (150-400); POLYS 56.7 %; RBC 2.73 mil/uL (4.20-5.00); RDW-CV 16.7 % (10.5-14.5); WBC 2.9 thou/uL (4.0-11.0)
[2019-02-09 08:50] VITALS: BP 132/72
[2019-02-09] MEDS ORDERED: ALLERGY25 MG PO (14:49)
[2019-02-09] MEDS ORDERED: DULCOLAX STOOL100 M1 PO (14:50)
[2019-02-09] MEDS ORDERED: ASPERCREME1 EACH TOP (14:55)
[2019-02-09] MEDS ORDERED: METAMUCIL FIBE3.4 GM PO (14:58)
[2019-02-09] MEDS ORDERED: FISH OIL 1,0001 EAC9 PO (15:18)
[2019-02-09] MEDS ORDERED: MAGNESIUM OXID400 M1 PO (15:25)
[2019-02-09] MEDS ORDERED: TRAMADOL 50 MG50 MG PO (15:28)
[2019-02-09] MEDS ORDERED: ROXICODONE5 M2 PO (15:32)
== END 2019-02-09 15:45 | disposition home health service (06) | DRG 493 ==
LOC: M.SUR 10:38 → M.2W 19:22 → M.TBA 19:22 → M.2W 19:38 → M.ORTHSURG 02-08 11:07
PROVIDERS: Internal Medicine; Orthopaedic Surgery; ADMIT Internal Medicine
PROC: 0PSF04Z Reposition Right Humeral Shaft with Internal Fixation Device, Open Approach (ICD-10-PCS; principal; 2019-02-02)
PROC: 30233N1 Transfusion of Nonautologous Red Blood Cells into Peripheral Vein, Percutaneous Approach (ICD-10-PCS; 2019-02-06)
PROC: 5A09357 Assistance with Respiratory Ventilation, Less than 24 Consecutive Hours, Continuous Positive Airway Pressure (ICD-10-PCS; 2019-02-06)
DX: S42.491A Other displaced fracture of lower end of right humerus, initial encounter for closed fracture (principal); J96.11 Chronic respiratory failure with hypoxia; N17.9 Acute kidney failure, unspecified; E11.9 Type 2 diabetes mellitus without complications; E03.9 Hypothyroidism, unspecified; F32.9 Major depressive disorder, single episode, unspecified; F41.9 Anxiety disorder, unspecified; M81.0 Age-related osteoporosis without current pathological fracture; I50.9 Heart failure, unspecified; H54.62 Unqualified visual loss, left eye, normal vision right eye; I11.0 Hypertensive heart disease with heart failure; Z87.891 Personal history of nicotine dependence; E88.09 Other disorders of plasma-protein metabolism, not elsewhere classified; D64.9 Anemia, unspecified; W18.39XA Other fall on same level, initial encounter; Y93.89 Activity, other specified; Y92.512 Supermarket, store or market as the place of occurrence of the external cause; Y99.8 Other external cause status; Z98.42 Cataract extraction status, left eye; Z98.41 Cataract extraction status, right eye; Z90.49 Acquired absence of other specified parts of digestive tract; Z90.710 Acquired absence of both cervix and uterus; Z82.49 Family history of ischemic heart disease and other diseases of the circulatory system

== ENCOUNTER → 2019-10-27 | Outpatient (CLI) | payer MEDICARE, SELFPAY ==
[~2019-10-27] MED LIST changes: +ALLERGY25 MG PO; +ASPERCREME1 EACH TOP; +DULCOLAX STOOL100 M1 PO; +FISH OIL 1,0001 EAC9 PO; +MAGNESIUM OXID400 M1 PO; +METAMUCIL FIBE3.4 GM PO; +ROXICODONE5 M2 PO; +TRAMADOL 50 MG50 MG PO
== END ==
LOC: M.CT 10-22 12:27
PROVIDERS: ATTEND Family Medicine
DX: R91.8 Other nonspecific abnormal finding of lung field (principal); K22.8 Other specified diseases of esophagus; N28.89 Other specified disorders of kidney and ureter; M81.0 Age-related osteoporosis without current pathological fracture

== ENCOUNTER → 2019-11-24 | Outpatient (CLI) | payer MEDICARE, SELFPAY | LOC: M.ULTRA 13:03 | PROVIDERS: ATTEND Family Medicine | DX: N28.1 Cyst of kidney, acquired (principal); N28.89 Other specified disorders of kidney and ureter ==

== ENCOUNTER → 2019-12-14 | Day surgery (SDC) | payer MEDICARE, SELFPAY ==
[~2019-12-14] MED LIST changes: +ERYTHROMYCIN250 M1 PO; +LANTUS SUBQ; +NOVOLOG100 UNIT/1 SUBQ; +OXYGEN MISCELL
--- NOTE | ~2019-12-14 | PROC ---
[facility] [address] [place] [address] PROCEDURE REPORT Name: GRAHAM TORO Room: [facility]#: [id number] Admission: 12/14/19 Attend Phys: Reynaldo Galeana MD Discharge: Date of : 38 Report #: [id number] THIS REPORT FOR: //name// cc: Quintin Greer MD, Matthew W. MD ~ For GI report, please see the Provation report in Perceptive 7 content. By: 0935Medical Records Staff LAMAR /ANDRIY
[2019-12-14 08:36] LABS: HEMATOCRIT 29.6 % (37.0-47.0); HEMOGLOBIN 9.7 gm/dL (12.0-15.0); MCH 27.2 pg (26.0-34.0); MCHC 32.7 g/dL (28.0-37.0); MCV 83.2 fL (80.0-100.0); MPV 7.2 fl. (7.2-11.1); RBC 3.56 mil/uL (4.20-5.00); RDW-CV 15.5 % (10.5-14.5); WBC 4.7 thou/uL (4.0-11.0)
[2019-12-14 08:46] LABS: CALCIUM 8.7 mg/dL (8.5-10.1); CREATININE 1.4 mg/dL (0.6-1.3); POTASSIUM 4.1 mmol/L (3.5-5.1)
--- NOTE | 2019-12-14 10:21 | EKG ---
[place] [address] ELECTROCARDIOGRAM REPORT Name: GRAHAM TORO Room: [facility]#: [id number] Admission: 12/14/19 Attend Phys: Reynaldo Galeana MD Discharge: Date of : 38 Date of Service: 12/14/19822 Report #: [id number] THIS REPORT FOR: //name// [facility] Test Date: 2019-12-14 Test Time: 08:23:12 Pat Name: GRAHAM TORO Department: Room: Gender: F Beer Merchant: : 1940 Requested By: Reynaldo Galeana Order Number: [id number] Reading MD: Soy Erickson Measurements Intervals [place] Rate: 53 P: 50 CT: 172 QRS: -7 QRSD: 90 T: 52 QT: 455 QTc: 428 Interpretive Statements Sinus rhythm Atrial premature complex Compared to ECG 01/27/2019 12:48:23 Atrial premature complex(es) now present Electronically Signed On 12-14-2019 10:21:48 ACCOUNT OFFICER by Soy Erickson [email or web address] <ELECTRONICALLY SIGNED> By: Soy Erickson MD, [facility] 12/14/19 1021 2 2 Soy Erickson MD, [facility] /EPI
--- NOTE | 2019-12-16 17:06 | PATH ---
[facility] [address] [place] [address] PATHOLOGY RPT PROCEDURE Name: GRAHAM TORO Room: [facility].#: [id number] Admission: 12/14/19 Date of : 38 Discharge: Report #: [id number] Path Case #: [id number] [facility] Accession Number: [id number] . 01 Material submitted: . esophagus - ESOPHAGEAL BIOPSY R/O DYSPHASIA . 01 Clinical history: . GERD, CHAPMAN'S . 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 See comment. (SHA:annalee; 12/16/2019) QMS 12/16/2019 1132 Local . 01 Comment: This case is also reviewed by Dr. Melinda Thomas and Dr. Kwasi Miller. (SHA:annalee; 12/16/2019) . 01 Electronically signed: . Garrick Kelley MD, Pathologist NPI- [id number] . 01 Gross description: . The specimen is received in formalin, labeled "[place], [place], esophageal biopsy" and consists of 3 fragments of pink-shah tissue measuring between 0.3 x 0.2 cm and 0.3 x 0.3 cm which are entirely submitted in A1. (SDY; 12/15/2019) SYU/SYU 12/15/2019 1702 Local . 01 Pathologist provided ICD-10: K22.70 . 01 CPT . 974187 Specimen Comment: A courtesy copy of this report has been sent to [phone], [phone] Specimen Comment: 1975 Specimen Comment: Report sent to / DR SANDOVAL Performed at: [address] [facility], [place] [id number] MD Garrick Kelley MD Phone: [phone]
== END | disposition home or self-care (01) ==
LOC: M.SUR 05:20
PROVIDERS: ATTEND Internal Medicine Gastroenterology
DX: R10.13 Epigastric pain (principal); K44.9 Diaphragmatic hernia without obstruction or gangrene; K22.70 Barrett's esophagus without dysplasia; K63.89 Other specified diseases of intestine; K21.9 Gastro-esophageal reflux disease without esophagitis; Z98.0 Intestinal bypass and anastomosis status; Z79.899 Other long term (current) drug therapy; Z98.890 Other specified postprocedural states; Z88.8 Allergy status to other drugs, medicaments and biological substances

== ENCOUNTER 2020-01-09 03:55 | Emergency (ER) | payer MEDICARE ==
[~2020-01-09] VITALS: Ht 170.2 cm; Wt 86.2 kg
[~2020-01-09 03:55] MED LIST changes: +LISINOPRIL10 MG PO; -LISINOPRIL20 MG PO
[2020-01-09] MEDS ORDERED: ADVAIR HFA 115-12 G1 INH (04:12)
[2020-01-09] MEDS ORDERED: NORVASC 2.5 MG2.5 M1 PO (04:14)
[2020-01-09 04:16] LABS: ABSOLUTE EOSINOPHILS 0.2 thou/uL (0.0-0.7); ABSOLUTE MONOCYTES 0.4 thou/uL (0.0-1.2); ABSOLUTE NEUTROPHILS 5.8 thou/uL (1.6-8.1); BASOPHILS 0.5 %; EOSINOPHILS 2.3 %; HEMATOCRIT 32.7 % (37.0-47.0); HEMOGLOBIN 10.7 gm/dL (12.0-15.0); LYMPHOCYTES 13.6 %; MCH 27.3 pg (26.0-34.0); MCHC 32.7 g/dL (28.0-37.0); MCV 83.3 fL (80.0-100.0); MONOCYTES 5.1 %; NUCLEATED RBCS 0 /100WBC; PLATELET COUNT* 216 thou/uL (150-400); POLYS 78.5 %; RBC 3.93 mil/uL (4.20-5.00); RDW-CV 15.6 % (10.5-14.5); WBC 7.3 thou/uL (4.0-11.0)
[2020-01-09 04:29] LABS: CALCIUM 8.7 mg/dL (8.5-10.1); CREATININE 1.6 mg/dL (0.6-1.3); POTASSIUM 4.3 mmol/L (3.5-5.1)
[2020-01-09 04:30] LABS: PROTIME 9.8 Seconds (9.20-11.50)
[2020-01-09 04:35] LABS: ALBUMIN 3.2 g/dL (3.4-5.0); MAGNESIUM 1.9 mg/dL (1.8-2.4); TOTAL BILIRUBIN 0.4 mg/dL (<0.1-1.0); TOTAL PROTEIN 7.3 g/dL (6.4-8.2)
[2020-01-09 05:32] LABS: INR 0.9
[2020-01-09 06:46] LABS: URINE BILIRUBIN NEGATIVE (Negative); URINE BLOOD NEGATIVE (Negative); URINE CLARITY CLEAR; URINE COLOR YELLOW; URINE GLUCOSE-RANDOM NEGATIVE (Negative); URINE KETONES NEGATIVE (Negative); URINE LEUKOCYTES-REFLEX TRACE (Negative); URINE NITRITE-REFLEX NEGATIVE (Negative); URINE PROTEIN TRACE (Negative); URINE SPECIFIC GRAVITY 1.015 (1.005-1.030); URINE UROBILINOGEN 0.2 E.U./dl (0.2-1.0)
[2020-01-09 07:13] LABS: BACTERIA-REFLEX 1-9 Few /HPF (None Seen); CASTS None Seen /LPF (None Seen); CRYSTALS None Seen /LPF (None Seen); SQUAMOUS 4-10 Moderate /LPF (0-3); URINE RBC 0-2 Rare /HPF (0-2); URINE WBC-REFLEX 0-5 Rare /HPF (0-5)
[2020-01-09 08:40] VITALS: BP 166/68
--- NOTE | 2020-01-09 12:48 | EKG ---
[place] [address] ELECTROCARDIOGRAM REPORT Name: GRAHAM TORO Afshin Room: [facility]#: [id number] Admission: 01/09/20 Attend Phys: Discharge: 01/09/20 Date of : 38 Date of Service: 01/09/20 0410 Report #: [id number] THIS REPORT FOR: //name// [facility] ED Test Date: 2020-01-09 Test Time: 04:10:27 Pat Name: GRAHAM TORO Department: Room: Gender: Counterperson: [place] : 1940 Requested By: Charlotte Robison Order Number: [id number] MD: Soy Erickson Measurements Intervals [place] Rate: 75 P: [place]: QRS: -24 QRSD: 86 T: 68 QT: 375 QTc: 419 Interpretive Statements sinus rhythm Borderline left axis deviation Compared to ECG 12/14/2019 08:23:12 Atrial premature complex(es) no longer present Electronically Signed On 01-09-2020 12:47:50 TEST ENGINEERING TECHNICIAN by Soy Erickson [email or web address] <ELECTRONICALLY SIGNED> By: Soy Erickson MD, [facility] 01/09/20 1247 0410 0410 Soy Erickson MD, [facility] /EPI
== END 2020-01-09 08:40 | disposition short-term general hospital (02) ==
LOC: M.ERS 03:55
PROVIDERS: Emergency Medicine
DX: S32.020A Wedge compression fracture of second lumbar vertebra, initial encounter for closed fracture (principal); Z20.828 Contact with and (suspected) exposure to other viral communicable diseases; S22.32XA Fracture of one rib, left side, initial encounter for closed fracture; S36.029A Unspecified contusion of spleen, initial encounter; E11.9 Type 2 diabetes mellitus without complications; Z90.49 Acquired absence of other specified parts of digestive tract; E03.9 Hypothyroidism, unspecified; M81.0 Age-related osteoporosis without current pathological fracture; Z90.710 Acquired absence of both cervix and uterus; I50.9 Heart failure, unspecified; I11.0 Hypertensive heart disease with heart failure; Z79.899 Other long term (current) drug therapy; Z79.82 Long term (current) use of aspirin; Z79.4 Long term (current) use of insulin; W18.39XA Other fall on same level, initial encounter; Y93.89 Activity, other specified; Y92.89 Other specified places as the place of occurrence of the external cause; Y99.8 Other external cause status

== ENCOUNTER 2020-04-07 18:37 | Inpatient (IN) | payer OTHER ==
[~2020-04-07] VITALS: Ht 170.2 cm; Wt 86.2 kg
[~2020-04-07 18:37] MED LIST changes: +ADVAIR HFA 115-12 G1 INH; +NORVASC 2.5 MG2.5 M1 PO
[2020-04-07 18:53] VITALS: BP 156/71
[2020-04-07] MEDS ORDERED: [UNRECOGNIZED DRUG - REMARK] PO (19:00)
[2020-04-07 19:36] LABS: ABSOLUTE MONOCYTES 0.8 thou/uL (0.0-1.2); ABSOLUTE NEUTROPHILS 7.6 thou/uL (1.6-8.1); BASOPHILS 0.5 %; EOSINOPHILS 0.5 %; HEMATOCRIT 30.9 % (37.0-47.0); LYMPHOCYTES 10.7 %; MCHC 32.3 g/dL (28.0-37.0); MCV 80.4 fL (80.0-100.0); MONOCYTES 8.5 %; MPV 7.6 fl. (7.2-11.1); NUCLEATED RBCS 0 /100WBC; PLATELET COUNT* 196 thou/uL (150-400); POLYS 79.8 %; RBC 3.84 mil/uL (4.20-5.00); RDW-CV 15.1 % (10.5-14.5); WBC 9.6 thou/uL (4.0-11.0)
[2020-04-07 19:42] LABS: CALCIUM 8.5 mg/dL (8.5-10.1); CREATININE 1.6 mg/dL (0.6-1.3); POTASSIUM 3.6 mmol/L (3.5-5.1)
[2020-04-07 19:51] LABS: ALBUMIN 2.9 g/dL (3.4-5.0); TOTAL BILIRUBIN 0.6 mg/dL (<0.1-1.0); TOTAL PROTEIN 6.5 g/dL (6.4-8.2)
[2020-04-07 22:33] LABS: URINE BILIRUBIN NEGATIVE (Negative); URINE BLOOD TRACE (Negative); URINE CLARITY CLEAR; URINE COLOR YELLOW; URINE GLUCOSE-RANDOM TRACE (Negative); URINE KETONES NEGATIVE (Negative); URINE LEUKOCYTES-REFLEX NEGATIVE (Negative); URINE NITRITE-REFLEX NEGATIVE (Negative); URINE PROTEIN 2+ (Negative); URINE SPECIFIC GRAVITY 1.015 (1.005-1.030)
[2020-04-07 22:39] LABS: SQUAMOUS 0-3 Few /LPF (0-3); URINE WBC-REFLEX 0-5 Rare /HPF (0-5)
[2020-04-07 22:40] LABS: AMORPHOUS PHOSPHATES Few /LPF (None Seen); BACTERIA-REFLEX >30 Many /HPF (None Seen); FINE GRANULAR CASTS 0-3 Few /LPF (None Seen); HYALINE CASTS 0-3 Few /LPF (None Seen); MUCUS 4-6 Moderate strn/LPF (None Seen); URINE RBC 3-10 Few /HPF (0-2)
[2020-04-08 00:10] VITALS: BP 167/62
[2020-04-08 00:30] VITALS: BP 170/64
[2020-04-08 00:45] VITALS: BP 164/68
--- NOTE | 2020-04-08 06:58 | NUR ---
PATIENT ADMITTED TO ROOM 304 FROM THE ER AT APPROXIMATELY 0030. REPORT GIVEN FROM ER NURSE. VSS ON RA, ALTHOUGH BP SLIGHTLY ELEVATED. PATIENT STATES THAT SHE HAS NOT TAKEN HER HOME MEDS DURING THE DAY. PATIENT FORGETFUL AT TIMES AND A POOR HISTORIAN. PATIENT ORIENTED TO ROOM AND POLICIES AND FALL EDUCATION GIVEN AND FALL AGREEMENT SIGNED. ASSESSMENT CHARTED. IV FLUDS STARTED-LEFT AC-NS @ 100ML/HR. PATIENT HAS REMAINED NPO PER ORDERS. FALL PRECAUTIONS IN PLACE AND HOURLY ROUNDS MADE. WILL CONTINUE WITH PLAN OF CARE AND NURSING TO MONITOR.
--- NOTE | 2020-04-08 09:30 | EKG ---
[place] [address] ELECTROCARDIOGRAM REPORT Name: MUNA,GRAHAM K Room: [address] ADM IN M.R.#: [id number] Admission: 04/07/20 Attend Phys: Dean West Discharge: Date of : 38 Date of Service: 04/07/201930 Report #: [id number] THIS REPORT FOR: //name// [facility] ED Test Date: 2020-04-07 Test Time: 19:31:51 Pat Name: GRAHAM TORO Department: Room: [facility] Gender: F Farmworkers: MUNA : 1940 Requested By: Ruth Solis Order Number: [id number] MD: Percy Hood Measurements Intervals [place] Rate: 77 P: 53 [place]: 166 QRS: -27 QRSD: 91 T: 78 QT: 373 QTc: 423 Interpretive Statements Sinus arrhythmia with rare PACs Borderline left axis deviation Anteroseptal infarct, age indeterminate possible Compared to ECG 01/09/2020 04:10:27 Myocardial infarct finding now possible Sinus arrhythmia is noted Electronically Signed On 04-08-2020 9:30:34 POULTRY FARM SUPERVISOR by Percy Hood [email or web address] <ELECTRONICALLY SIGNED> By: Percy Hood MD, FACC 04/08/20929 30 30 Percy Hood MD, [facility] /EPI
--- NOTE | 2020-04-08 10:15 | NUR ---
PT.ALERTT AND ORIENTED. SHE SAID SHE LIVES WITH HER . 'HE IS WONDERFUL'. HE DRIVES, SHOPS,CLEANS DOES THE LAUNDRY AND COOKS. SHE SAID SHE CANNOT DO MUCH DUE TO CHRONIC PAIN. SHE HAS A CANE AND WALKER BUT DOESN'T ROUTINELY USE THEM. SHE WOULD BE INTERESTED IN HH IF NEEDED. NO HX OF SNF.SHE WOULD LIKE TO USE [facility] IF HH ORDERED. THEY GO TO HER AREA.
[2020-04-08 16:21] VITALS: BP 133/60
--- NOTE | 2020-04-08 18:09 | NUR ---
PATIENT ALERT AND ORIENTED X 4. VITAL SIGNS STABLE ON ROOM AIR. UP TO CHAIR FOR MEALS. IV PATENT AND SALINE LOCKED. PAIN BEING MANAGED WITH PO MEDICATION. DENIES NAUSEA AT THIS TIME. FALL PRECAUTIONS IN PLACE AND BED ALARM ON. HOURLY ROUNDS MAINTAINED THROUGHOUT THE SHIFT. CALL LIGHT WITHIN REACH. NURSING WILL CONTINUE TO MONITOR.
[2020-04-09 00:15] VITALS: BP 148/60
[2020-04-09 02:06] LABS: GLYCOHEMOGLOBIN (HGB A1C) 9.4 % (4.8-5.6)
--- NOTE | 2020-04-09 06:28 | NUR ---
PT A&O, ON RA. MEDS GIVEN ORDERED. PAIN MANAGED WITH TYLENOL. UP TO BSC WITH 1. PT SLEPT MOST OF THE NIGHT. CALL LIGHT WITHIN REACH. WILL CONTINUE TO MONITOR.
[2020-04-09 06:32] LABS: HEMATOCRIT 24.1 % (37.0-47.0); MCH 26.4 pg (26.0-34.0); MCHC 33.1 g/dL (28.0-37.0); MCV 79.8 fL (80.0-100.0); MPV 7.8 fl. (7.2-11.1); RBC 3.02 mil/uL (4.20-5.00); RDW-CV 15.7 % (10.5-14.5); WBC 7.2 thou/uL (4.0-11.0)
[2020-04-09 06:51] LABS: ALBUMIN 2.2 g/dL (3.4-5.0); CALCIUM 8.3 mg/dL (8.5-10.1); CREATININE 1.7 mg/dL (0.6-1.3); MAGNESIUM 1.6 mg/dL (1.8-2.4); POTASSIUM 3.4 mmol/L (3.5-5.1); TOTAL BILIRUBIN 0.3 mg/dL (<0.1-1.0); TOTAL PROTEIN 5.5 g/dL (6.4-8.2)
[2020-04-09 08:26] VITALS: BP 128/63
[2020-04-09 16:00] VITALS: BP 146/57
--- NOTE | 2020-04-09 17:21 | NUR ---
PATIENT HAS REMAINED A&OX4, PLEASANT AND COOPERATIVE WITH CARES THIS SHIFT. MEDICATIONS ADMINISTERED ORDERED, REPLACEMENTS FOR MAGNESIUM AND POTASSIUM ADMINISTERED PER ELECTROLYTE PROTOCOL. CALL LIGHT AND FREQUENTLY USED ITEMS WITHIN REACH.
[2020-04-09 20:00] VITALS: BP 149/58
[2020-04-09 21:59] LABS: MAGNESIUM 1.9 mg/dL (1.8-2.4); POTASSIUM 4.8 mmol/L (3.5-5.1)
[2020-04-10 06:30] LABS: HEMATOCRIT 23.6 % (37.0-47.0); HEMOGLOBIN 7.8 gm/dL (12.0-15.0); MCH 26.4 pg (26.0-34.0); MCV 79.9 fL (80.0-100.0); MPV 8.2 fl. (7.2-11.1); RBC 2.96 mil/uL (4.20-5.00); RDW-CV 15.4 % (10.5-14.5); WBC 4.8 thou/uL (4.0-11.0)
--- NOTE | 2020-04-10 06:46 | NUR ---
Alert and oriented x 4. She is up independently in the room to the bathroom. 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 She was 209 at HS and she didn't want SS insulin and we only gave 1/2 her lantus dose because she had such a low bloodsugar yesterday morning. Mg+ and K+ are adequate today. She had benadryl at midnight and she has slept.
[2020-04-10 06:48] LABS: ALBUMIN 2.2 g/dL (3.4-5.0); CALCIUM 8.2 mg/dL (8.5-10.1); CREATININE 1.9 mg/dL (0.6-1.3); TOTAL BILIRUBIN 0.2 mg/dL (<0.1-1.0); TOTAL PROTEIN 5.6 g/dL (6.4-8.2)
[2020-04-10 06:54] LABS: POTASSIUM 3.7 mmol/L (3.5-5.1)
[2020-04-10 08:20] VITALS: BP 151/63
[2020-04-10 16:00] VITALS: BP 144/65
[2020-04-10 20:00] VITALS: BP 179/83
--- NOTE | 2020-04-10 20:49 | NUR ---
Pt remained A&O x4 for entire shift. Pt pleasant with staff. Vital signs stable. Pt complains of pain in generalized abdomen. Pt up to chair for part of the day. Bed in low position, call light within reach.
[2020-04-11 05:45] LABS: ALBUMIN 2.2 g/dL (3.4-5.0); CREATININE 1.9 mg/dL (0.6-1.3); MAGNESIUM 1.9 mg/dL (1.8-2.4); TOTAL BILIRUBIN 0.1 mg/dL (<0.1-1.0); TOTAL PROTEIN 5.5 g/dL (6.4-8.2)
[2020-04-11 05:52] LABS: HEMATOCRIT 23.8 % (37.0-47.0); MCH 27.1 pg (26.0-34.0); MCHC 33.6 g/dL (28.0-37.0); MCV 80.6 fL (80.0-100.0); MPV 7.8 fl. (7.2-11.1); RBC 2.96 mil/uL (4.20-5.00); RDW-CV 15.9 % (10.5-14.5); WBC 4.3 thou/uL (4.0-11.0)
--- NOTE | 2020-04-11 07:19 | NUR ---
Alert and oriented x 4. She is up independently in the room to the bathroom. She did request benadryl and tylenol at bedtime. Vital signs stable. She has slept well.
--- NOTE | 2020-04-11 12:18 | NUR ---
PT ROUNDS: DOCTOR AWAITING CULTURES. HEMOGLOBIN IS LOW. PT HAS UNCONTROLLED PX.
[2020-04-11 16:00] VITALS: BP 193/90
[2020-04-11 19:50] VITALS: BP 179/76
--- NOTE | 2020-04-11 20:09 | NUR ---
Pt remained A&O x4 for entire shift. Vital signs stable. Pt pleasant with staff. Pt did not complain of any pain this shift. Pt feels ready to go home. Pt walks with steady gait to bathroom and back several times this shift. Pt up to chair for part of the day. Bed in low position, call light within reach.
--- NOTE | 2020-04-12 04:29 | NUR ---
PT A&O X 4. ON RA. MEDS GIVEN ORDERED. PT SLEPT MOST OF THE NIGHT. UP INDEPENDENTLY IN THE ROOM. CALL LIGHT WITHIN REACH. WILL CONTINUE TO MONITOR.
[2020-04-12 07:10] VITALS: BP 186/67
[2020-04-12 07:20] LABS: HEMATOCRIT 26.6 % (37.0-47.0); HEMOGLOBIN 8.7 gm/dL (12.0-15.0); MCH 26.4 pg (26.0-34.0); MCHC 32.8 g/dL (28.0-37.0); MCV 80.3 fL (80.0-100.0); MPV 7.2 fl. (7.2-11.1); RBC 3.32 mil/uL (4.20-5.00); RDW-CV 15.8 % (10.5-14.5); WBC 4.5 thou/uL (4.0-11.0)
[2020-04-12 07:34] LABS: ALBUMIN 2.5 g/dL (3.4-5.0); CALCIUM 8.5 mg/dL (8.5-10.1); CREATININE 1.8 mg/dL (0.6-1.3); MAGNESIUM 1.9 mg/dL (1.8-2.4); POTASSIUM 4.1 mmol/L (3.5-5.1); TOTAL BILIRUBIN 0.2 mg/dL (<0.1-1.0)
[2020-04-12] MEDS ORDERED: CEFUROXIME250 MG PO (08:00)
[2020-04-12] MEDS ORDERED: NORVASC5 M1 PO (08:10)
[2020-04-12 10:19] VITALS: BP 186/67
--- NOTE | 2020-04-12 11:25 | NUR ---
CM FAXED DC ORDERS TO [facility] @ [phone].
[2020-04-12 11:48] VITALS: BP 186/67
--- NOTE | 2020-04-12 11:54 | NUR ---
ESTHELA Workman/[facility] CONFIRMED THEY CAN START PT ON SERVICE ON TOMORROW OR SATURDAY. PT NOTIFIED.
[2020-04-12 11:55] VITALS: BP 186/67
--- NOTE | 2020-04-12 12:46 | NUR ---
PT GIVEN DISCHARGE INFORMATION. IV REMOVED. PT BELONGINGS GATHERED. PT LEFT VIA WHEELCHAIR WITH NURSING STAFF TO HOME WITH HOME HEALTH.
[2020-04-12 12:58] VITALS: BP 186/67
== END 2020-04-12 12:58 | disposition home health service (06) | DRG 690 ==
LOC: M.ERS 18:37 → M.3W 21:24 → M.TBA-ER 21:24 → M.3W 04-08 00:37
PROVIDERS: Internal Medicine; Physician Assistant; ADMIT Internal Medicine; ATTEND Internal Medicine
DX: N39.0 Urinary tract infection, site not specified (principal); E44.1 Mild protein-calorie malnutrition; I13.0 Hypertensive heart and chronic kidney disease with heart failure and stage 1 through stage 4 chronic kidney disease, or unspecified chronic kidney disease; R18.8 Other ascites; I50.32 Chronic diastolic (congestive) heart failure; N17.9 Acute kidney failure, unspecified; N18.4 Chronic kidney disease, stage 4 (severe); F32.9 Major depressive disorder, single episode, unspecified; E11.22 Type 2 diabetes mellitus with diabetic chronic kidney disease; F41.9 Anxiety disorder, unspecified; D64.9 Anemia, unspecified; M81.0 Age-related osteoporosis without current pathological fracture; E03.9 Hypothyroidism, unspecified; Z20.822 Contact with and (suspected) exposure to COVID-19; Z90.710 Acquired absence of both cervix and uterus; Z98.41 Cataract extraction status, right eye; Z98.42 Cataract extraction status, left eye; Z90.49 Acquired absence of other specified parts of digestive tract; Z79.82 Long term (current) use of aspirin; Z79.4 Long term (current) use of insulin; Z79.899 Other long term (current) drug therapy; Z87.891 Personal history of nicotine dependence; Z68.29 Body mass index [BMI] 29.0-29.9, adult

== ENCOUNTER 2020-07-02 12:25 | Inpatient (IN) | payer OTHER ==
[~2020-07-02] VITALS: Ht 170.2 cm; Wt 93.7 kg
[~2020-07-02 12:25] MED LIST changes: +CEFUROXIME250 MG PO; +NORVASC5 M1 PO; +[UNRECOGNIZED DRUG - REMARK] PO
[2020-07-02 12:41] VITALS: BP 141/70
[2020-07-02 13:04] LABS: URINE BILIRUBIN NEGATIVE (Negative); URINE BLOOD 2+ (Negative); URINE CLARITY CLEAR; URINE COLOR YELLOW; URINE GLUCOSE-RANDOM 3+ (Negative); URINE KETONES NEGATIVE (Negative); URINE LEUKOCYTES-REFLEX NEGATIVE (Negative); URINE NITRITE-REFLEX NEGATIVE (Negative); URINE PROTEIN 3+ (Negative); URINE SPECIFIC GRAVITY 1.025 (1.005-1.030); URINE UROBILINOGEN 0.2 E.U./dl (0.2-1.0)
[2020-07-02 13:09] LABS: SQUAMOUS >10 Many /LPF (0-3)
[2020-07-02 13:10] LABS: ABSOLUTE MONOCYTES 0.8 thou/uL (0.0-1.2); ABSOLUTE NEUTROPHILS 7.4 thou/uL (1.6-8.1); BASOPHILS 0.5 %; EOSINOPHILS 0.2 %; HEMATOCRIT 33.3 % (37.0-47.0); HEMOGLOBIN 10.7 gm/dL (12.0-15.0); LYMPHOCYTES 10.4 %; MCH 26.1 pg (26.0-34.0); MCHC 32.1 g/dL (28.0-37.0); MCV 81.1 fL (80.0-100.0); MONOCYTES 8.7 %; MPV 7.9 fl. (7.2-11.1); NUCLEATED RBCS 0 /100WBC; PLATELET COUNT* 209 thou/uL (150-400); POLYS 80.2 %; RBC 4.11 mil/uL (4.20-5.00); RDW-CV 18.1 % (10.5-14.5); WBC 9.2 thou/uL (4.0-11.0)
[2020-07-02 13:10] LABS: COARSE GRANULAR CASTS 0-3 Few /LPF (None Seen); CRYSTALS None Seen /LPF (None Seen); HYALINE CASTS 0-3 Few /LPF (None Seen)
[2020-07-02 13:11] LABS: BACTERIA-REFLEX 1-9 Few /HPF (None Seen); MUCUS 0-3 Light strn/LPF (None Seen); URINE RBC 3-10 Few /HPF (0-2); URINE WBC-REFLEX 0-5 Rare /HPF (0-5)
[2020-07-02 13:22] LABS: CALCIUM 8.1 mg/dL (8.5-10.1); POTASSIUM 4.8 mmol/L (3.5-5.1)
[2020-07-02 13:23] LABS: ALBUMIN 3.1 g/dL (3.4-5.0); TOTAL BILIRUBIN 0.5 mg/dL (<0.1-1.0); TOTAL PROTEIN 6.7 g/dL (6.4-8.2)
[2020-07-02 20:01] VITALS: BP 165/70
[2020-07-02 22:30] VITALS: BP 157/60
[2020-07-03 04:45] LABS: HEMATOCRIT 26.7 % (37.0-47.0); MCHC 32.4 g/dL (28.0-37.0); MCV 80.2 fL (80.0-100.0); MPV 8.2 fl. (7.2-11.1); RBC 3.33 mil/uL (4.20-5.00); RDW-CV 17.7 % (10.5-14.5); WBC 9.3 thou/uL (4.0-11.0)
[2020-07-03 04:59] LABS: HEMOGLOBIN 8.7 gm/dL (12.0-15.0)
[2020-07-03 05:08] LABS: CALCIUM 7.9 mg/dL (8.5-10.1); MAGNESIUM 2.1 mg/dL (1.8-2.4); PHOSPHORUS* 2.8 mg/dL (2.5-4.9); POTASSIUM 4.5 mmol/L (3.5-5.1)
[2020-07-03 08:00] VITALS: BP 135/55
[2020-07-03 15:53] VITALS: BP 146/53
[2020-07-03 20:00] VITALS: BP 147/56
[2020-07-04 04:57] LABS: CALCIUM 7.9 mg/dL (8.5-10.1); POTASSIUM 3.7 mmol/L (3.5-5.1)
[2020-07-04 05:15] LABS: HEMATOCRIT 22.9 % (37.0-47.0); HEMOGLOBIN 7.4 gm/dL (12.0-15.0); MCH 25.8 pg (26.0-34.0); MCHC 32.1 g/dL (28.0-37.0); MCV 80.2 fL (80.0-100.0); MPV 8.4 fl. (7.2-11.1); RBC 2.86 mil/uL (4.20-5.00); RDW-CV 17.6 % (10.5-14.5); WBC 5.3 thou/uL (4.0-11.0)
[2020-07-04 08:15] VITALS: BP 153/66
[2020-07-04 13:00] LABS: HEMATOCRIT 26.1 % (37.0-47.0); HEMOGLOBIN 8.4 gm/dL (12.0-15.0)
[2020-07-04 13:15] LABS: % SATURATION 4 % (20-39); IRON 9 ug/dL (50-175)
--- NOTE | 2020-07-04 13:48 | EKG ---
[place] [address] ELECTROCARDIOGRAM REPORT Name: JEREL TOROETTA Afshin Room: [address] IN ..#: [id number] Admission: 07/02/20 Attend Phys: Paige Patel MD Discharge: Date of : 38 Date of Service: 07/02/20 1258 Report #: [id number] THIS REPORT FOR: //name// [facility] ED Test Date: 2020-07-02 Test Time: 12:58:49 Pat Name: GRAHAM TORO Department: Room: [facility] Gender: F Field Attendant: ABRAHAM : 1940 Requested By: Jacobo Saenz Order Number: [id number] MD: Percy Hood Measurements Intervals [place] Rate: 87 P: 61 [place]: 165 QRS: -38 QRSD: 86 T: 76 QT: 378 QTc: 455 Interpretive Statements Sinus rhythm Left axis deviation Compared to ECG 04/07/2020 19:31:51 Sinus arrhythmia no longer present Myocardial infarct finding no longer present Electronically Signed On 07-04-2020 13:48:49 CDT by Percy Hood [email or web address] <ELECTRONICALLY SIGNED> By: Percy Hood MD, [facility] 07/04/20 1348 1258 1258 Percy Hood MD, [facility] /EPI
[2020-07-04 17:31] VITALS: BP 171/66
[2020-07-04 20:30] VITALS: BP 129/49
[2020-07-05 04:27] LABS: CALCIUM 8.1 mg/dL (8.5-10.1); CREATININE 1.7 mg/dL (0.6-1.3); POTASSIUM 3.3 mmol/L (3.5-5.1)
[2020-07-05 04:40] LABS: HEMATOCRIT 22.8 % (37.0-47.0); HEMOGLOBIN 7.5 gm/dL (12.0-15.0); MCV 78.8 fL (80.0-100.0); MPV 8.3 fl. (7.2-11.1); RBC 2.89 mil/uL (4.20-5.00); RDW-CV 17.8 % (10.5-14.5)
[2020-07-05 08:10] VITALS: BP 149/55
[2020-07-05 16:13] VITALS: BP 185/62
[2020-07-05 21:40] VITALS: BP 188/80
[2020-07-06 03:00] VITALS: BP 198/67
[2020-07-06 04:00] VITALS: BP 199/71
[2020-07-06 04:48] LABS: HEMATOCRIT 22.9 % (37.0-47.0); HEMOGLOBIN 7.6 gm/dL (12.0-15.0); MCH 25.9 pg (26.0-34.0); MCV 78.4 fL (80.0-100.0); MPV 7.7 fl. (7.2-11.1); RBC 2.92 mil/uL (4.20-5.00); RDW-CV 17.6 % (10.5-14.5); WBC 3.7 thou/uL (4.0-11.0)
[2020-07-06 05:07] LABS: CALCIUM 8.5 mg/dL (8.5-10.1); CREATININE 1.4 mg/dL (0.6-1.3); MAGNESIUM 1.8 mg/dL (1.8-2.4); PHOSPHORUS* 3.1 mg/dL (2.5-4.9); POTASSIUM 3.5 mmol/L (3.5-5.1)
[2020-07-06 05:30] VITALS: BP 199/71
[2020-07-06 07:45] VITALS: BP 187/71
[2020-07-06] MEDS ORDERED: CARVEDILOL3.125 MG PO (15:59)
[2020-07-06] MEDS ORDERED: LISINOPRIL20 MG PO (16:03)
[2020-07-06] MEDS ORDERED: METRONIDAZOLE500 M4 PO (16:17)
[2020-07-06] MEDS ORDERED: AUGMENTIN 875-1 EACH PO (16:17)
[2020-07-06 16:52] VITALS: BP 187/71
[2020-07-06 17:52] VITALS: BP 187/71
== END 2020-07-06 17:10 | disposition home or self-care (01) | DRG 393 ==
LOC: M.ERS 12:25 → M.TBA-ER 17:25 → M.ORTHSURG 17:25
PROVIDERS: Emergency Medicine Emergency Medical Services; Internal Medicine; ADMIT Family Medicine; ATTEND Family Medicine
DX: K63.1 Perforation of intestine (nontraumatic) (principal); E11.00 Type 2 diabetes mellitus with hyperosmolarity without nonketotic hyperglycemic-hyperosmolar coma (NKHHC); N18.4 Chronic kidney disease, stage 4 (severe); I13.0 Hypertensive heart and chronic kidney disease with heart failure and stage 1 through stage 4 chronic kidney disease, or unspecified chronic kidney disease; N17.9 Acute kidney failure, unspecified; J96.10 Chronic respiratory failure, unspecified whether with hypoxia or hypercapnia; I50.32 Chronic diastolic (congestive) heart failure; E03.9 Hypothyroidism, unspecified; F32.9 Major depressive disorder, single episode, unspecified; F41.9 Anxiety disorder, unspecified; K59.00 Constipation, unspecified; M81.0 Age-related osteoporosis without current pathological fracture; Z20.822 Contact with and (suspected) exposure to COVID-19; Z98.42 Cataract extraction status, left eye; Z90.49 Acquired absence of other specified parts of digestive tract; Z90.710 Acquired absence of both cervix and uterus; Z79.82 Long term (current) use of aspirin; Z98.41 Cataract extraction status, right eye; Z79.899 Other long term (current) drug therapy; Z79.4 Long term (current) use of insulin; Z98.84 Bariatric surgery status